=== PATIENT | female | born 1960 | race Caucasian/White ===

== ENCOUNTER 2022-05-13 12:13 | Emergency (ER) | payer OTHER | END 2022-05-13 14:53 | disposition home or self-care (01) | LOC: FER 12:13 | DX: S16.1XXA Strain of muscle, fascia and tendon at neck level, initial encounter (principal); Z88.2 Allergy status to sulfonamides; Z88.5 Allergy status to narcotic agent; V43.53XA Car driver injured in collision with pick-up truck in traffic accident, initial encounter | CPT/HCPCS: 72050; 72072 ==